=== PATIENT | male | born 1950 | race Caucasian/White ===

== ENCOUNTER → 2020-06-18 | Day surgery (SDC) | payer MEDICARE ==
[2020-06-11 12:07] LABS: BASOPHILS % (AUTO) 0.7 % (0-1); EOSINOPHILS # (AUTO) 0.2 X10'3 (0-0.9); EOSINOPHILS % (AUTO) 2.6 % (0-6); LYMPHOCYTES # (AUTO) 2.5 X10'3 (1.1-4.8); LYMPHOCYTES % (AUTO) 33.7 % (21-51); MEAN CORPUSCULAR HEMOGLOBIN 31.6 PG (27.0-31.0); MEAN CORPUSCULAR HGB CONC 33.5 g/dL (33.0-36.5); MEAN CORPUSCULAR VOLUME 94.3 FL (78-98); MONOCYTES # (AUTO) 0.8 X10'3 (0-0.9); MONOCYTES % (AUTO) 10.4 % (2-12); NEUTROPHILS # (AUTO) 3.9 X10'3 (1.8-7.7); NEUTROPHILS % (AUTO) 52.6 % (42-75); PRE OP HEMATOCRIT 46.8 % (42.0-52.0); PRE OP HEMOGLOBIN 15.7 g/dL (14.0-17.9); PRE OP PLATELET COUNT 240 X10'3 (140-440); RED BLOOD COUNT 4.96 X10'6 (4.70-6.10); RED CELL DISTRIBUTION WIDTH 13.2 % (11.5-14.5)
[2020-06-11 12:11] LABS: ALBUMIN/GLOBULIN RATIO 1.1 (1.1-1.5); ALKALINE PHOSPHATASE 86 IU/L (46-116); BLOOD UREA NITROGEN 19 MG/DL (7-18); BUN/CREATININE RATIO 18.6 (5.4-32.0); CALCIUM 8.9 MG/DL (8.5-10.1); CHLORIDE 107 MMOL/L (99-107); CREATININE 1.02 MG/DL (0.60-1.10); PRE OP ALT 46 U/L (30-65); PRE OP ANION GAP 8 (8-16); PRE OP AST 25 U/L (10-37); PRE OP BILIRUB, TOTAL 0.5 MG/DL (0.0-1.0); PRE OP GLUCOSE 104 MG/DL (70-104); PRE OP POTASSIUM 4.1 MMOL/L (3.4-5.1); PRE OP SODIUM 141 MMOL/L (135-145); TOTAL CARBON DIOXIDE 26.3 MMOL/L (24-32); TOTAL PROTEIN 7.7 G/DL (6.4-8.2); eGFR 72 ML/MIN
[2020-06-18] VITALS (13 sets, daily range): BP systolic 116–151; BP diastolic 64–84
[~2020-06-18] VITALS: Ht 180.3 cm; Wt 90.4 kg
[~2020-06-18] MED LIST: BUPIVAcaine/PF 2.5 mg/ml (0.25%) 30ml vial ONE; CALC-774 PO; DOCUMENT DATE & TIME OF BETA-BLOCKER PO ONE; HYDROcodone/acetaminophen 10/325mg tab PO PRN; HYDROcodone/acetaminophen 5mg/325mg tablet PO PRN; LIDOcaine 1% 30ml preserv. free vial ONE; LIDOcaine 2% (20mg/ml) 5ml vial ONE; LIDOcaine 2% 10ml TOPICAL JELLY (Urojet) MM ONE; NEBI5TAB10 PO; PANT40TA54 PO; SALM1CAP4 PO; VITA1CAP16 PO; acetaminophen 1,000mg/100ml IV 100 ML IV ONE; ceFAZolin 2gm in dextrose, iso 50 ML IV ONE; dexamethasone sod phosphate 4mg/ml inj. ONE; ePHEDrine 50MG/ML INJ. ONE; famotidine 20mg tablet PO ONE; fentaNYL/PF 50MCG/1 ML 2ML syringe ONE; glycopyrrolate 0.2mg/ml inj ONE; meperidine/PF 25mg/ml syringe IV PRN; midazolam 2 mg/2 ml injection ONE; morphine 2 MG/ML inj. syringe IV PRN; morphine 4 MG/ML inj SYRINge IV PRN; neostigmine methylsulfate 1 MG/ML 10ml vial ONE; ondansetron/PF 4mg/2ml inj IV PRN; ondansetron/PF 4mg/2ml inj ONE; proCHLORperazine 10 MG/2 ml inj IV PRN; propofol inj 20 ML IV ONE; ringers solution, lacted 1,000 ML IV SCH; rocuronium 10mg/ml inj IV ONE; sevoflurane 250ml liquid IH ONE
--- NOTE | 2020-06-18 09:25 | NUR ---
Received from OR via BED , accompanied by Anesthesiologist DR HECTOR and report given by Anesthesiolgist. PATIENT WAKING UP, DENIES PAIN, V/S WNL, NEUROVASCULAR CHECKS INTACT, 20G PIV LUE, SCD ON, BANDAIDS TO LAP SIGHTS OF ABDOMEN CDI.
--- NOTE | 2020-06-18 12:05 | NUR ---
PATIENT UNABLE TO VOID SO WAS SENT TO [facility]
--- NOTE | 2020-06-18 13:20 | NUR ---
PT CONTINUES TO TRY TO VOID WITHOUT SUCCESS. MESSAGE TO DR CARDOZA WITH RESPONSE OF PLACING PRATT CATH AND SENT PT HOME. PT MAY COME BACK TO DR CARDOZA'S TOMORROW TO HAVE THE PRATT REMOVED OR HAVE PT TAKE IT OUT HIMSELF AT HOME ON MONDAY. CALLED PT'S AND HAD A CONVERSATION WITH HER AND PT ON SPEAKER PHONE TO SEE WHAT THEY FELT MOST COMFORTABLE WITH. THEY EACH AGREED THAT TAKING IT OUT AT HOME WOULD BE BEST FOR THEM.
--- NOTE | 2020-06-18 13:45 | NUR ---
16FR PRATT CATHETER PLACED APPROX 300CC CLEAR URINE OUT. PT TOLERATED WELL. VERBAL AND WRITTEN INSTRUCTIONS FOR CARE AND REMOVAL GIVEN AND READ TO PT . QUESTIONS ENCOURAGED AND ANSWERED. PT VERBALIZED UNDERSTANDING, DC'D PIV INTRACATH INTACT, PLACED 2X2 GAUZE AND WRAPPED WITH COBAN. PT LEFT VIA WHEELCHAIR ACCOMPANIED BY [facility] RN TO PRIVATE VEHICLE.
== END | disposition home or self-care (01) ==
LOC: PAS 05:35
PROVIDERS: ATTEND Surgery
DX: K40.20 Bilateral inguinal hernia, without obstruction or gangrene, not specified as recurrent (principal); K42.0 Umbilical hernia with obstruction, without gangrene; K21.9 Gastro-esophageal reflux disease without esophagitis; M19.90 Unspecified osteoarthritis, unspecified site; I10 Essential (primary) hypertension; Z79.899 Other long term (current) drug therapy; Z96.653 Presence of artificial knee joint, bilateral; Z98.890 Other specified postprocedural states; Z20.828 Contact with and (suspected) exposure to other viral communicable diseases
CPT/HCPCS: 36415; 49587; 49650; 80053; 82948; 85025; 87635; 93005; C1781; J0131; J1100; J2001; J2175; J2250; J2405; J2704; J2710; J3010; J3490; A4215; A4618; J7120